=== PATIENT | female | born 1960 ===

== ENCOUNTER 2020-02-29 05:31 | Day surgery (SDC) | payer BC ==
[2020-02-29] MEDS ORDERED: LACTATED RINGERS 1,000 ML ONE (06:10)
[2020-02-29] MEDS ORDERED: PROPOFOL 200 MG/20 ML VIAL IV ONE (07:00)
[2020-02-29] MEDS ORDERED: LIDOCAINE 1% 10 ML VIAL INJ ONE (07:00)
--- NOTE | 2020-02-29 09:25 | OP ---
DATE OF PROCEDURE: 02/29/20 PREPROCEDURE DIAGNOSIS: 1. Average risk colorectal cancer screening. This is the patient's first colonoscopy. POSTPROCEDURE DIAGNOSIS: 1. Colonic polyp. 2. Internal hemorrhoids. PROCEDURE: 1. Colonoscopy with snare polypectomy. SURGEON: Onur Holland MD. SEDATION: Monitored anesthesia care. ESTIMATED BLOOD LOSS: Less than 5 mL. COMPLICATIONS: None. DESCRIPTION OF PROCEDURE: Informed consent was obtained prior to sedation. The preprocedure cardiopulmonary assessment was satisfactory. The patient was brought to the Endoscopy Suite and placed in the left lateral decubitus position. The patient was then sedated by the anesthesia team. Digital rectal and perianal exams were normal. The tip of the Olympus colonoscope was inserted into the rectum and advanced under direct visualization to the cecum Preparation of the colon was good. The scope was then slowly withdrawn. In the ascending colon, there was a 6 mm sessile polyp. This was resected with cold snare polypectomy, but was not retrieved. Retroflexed view of the anal verge showed large, non-bleeding internal hemorrhoids. The endoscope was then withdrawn from the patient and the procedure terminated. RECOMMENDATION: 1. Discharge the patient home with escort. 2. Resume previous diet. 3. Resume home medications. 4. Followup pathology. 5. Surveillance colonoscopy in 5 years. #[id number] [id number]
[2020-02-29 09:53] VITALS: BP 146/69; TEMP 96.9; O2SAT 100
== END 2020-02-29 10:12 | disposition home or self-care (01) ==
LOC: AMB 05:31
PROVIDERS: ATTEND Internal Medicine Gastroenterology
DX: Z12.11 Encounter for screening for malignant neoplasm of colon (principal); D12.2 Benign neoplasm of ascending colon; K64.8 Other hemorrhoids; Z80.51 Family history of malignant neoplasm of kidney
CPT/HCPCS: 00812; 45385; J3490; J7120